=== PATIENT | female | born 1990 | race African-American/Black ===

== ENCOUNTER 2017-12-27 17:31 | Emergency (ER) | payer OTHER ==
[~2017-12-27] VITALS: Ht 165.1 cm; Wt 94.1 kg
[~2017-12-27 17:31] MED LIST: ALBU8.5H8 IH
[2017-12-27 18:10] LABS: BASOPHILS % (AUTO) 0.4 % (0.0-2.0); EOSINOPHILS % (AUTO) 1.7 % (1.0-6.0); HEMATOCRIT 31.4 % (36-46); HEMOGLOBIN 10.7 g/dL (12.0-16.0); LYMPHOCYTES # (AUTO) 1.9 K/uL (1.0-4.8); LYMPHOCYTES % (AUTO) 18.1 % (22.0-44.0); MEAN CORPUSCULAR HEMOGLOBIN 32.3 pg (26.0-34.0); MEAN CORPUSCULAR HGB CONC 34.1 G/dL (31.0-37.0); MEAN CORPUSCULAR VOLUME 95 fL (80-100); MONOCYTES # (AUTO) 0.9 K/uL (0.1-1.0); MONOCYTES % (AUTO) 8.4 % (2.0-9.0); NEUTROPHILS # (AUTO) 7.4 K/uL (1.8-7.7); NEUTROPHILS % (AUTO) 71.4 % (40.0-70.0); PLATELET COUNT (AUTO) 244 K/uL (150-450); RED BLOOD CELL COUNT(AUTO) 3.32 MIL/uL (4.00-5.20); RED CELL DISTRIBUTION WIDTH 11.9 % (11.5-14.5)
[2017-12-27 18:16] LABS: ANION GAP 8 mmol/L (8-16); CALCIUM, TOTAL 9.2 mg/dL (8.8-10.5); CARBON DIOXIDE 25 mmol/L (22-29); CHLORIDE 100 mmol/L (98-107); CREATININE 0.59 mg/dL (0.60-1.30); GLOMERULAR FILTR. RATE CALC > 60 mL/min (>60); GLUCOSE,RANDOM 91 mg/dL (70-110); POTASSIUM 3.4 mmol/L (3.5-5.1); SODIUM SERUM 133 mmol/L (136-145); UREA NITROGEN, BLOOD 4 mg/dL (7-18)
[2017-12-27 18:44] LABS: ALANINE AMINOTRANSFERASE 18 U/L (12-78); ALBUMIN 3.1 g/dL (3.4-5.0); ALKALINE PHOSPHATASE 52 U/L (46-116); ASPARTATE AMINOTRANSFERASE 15 U/L (15-37); HCG,QUANTITATIVE 128023 mIU/mL (0-6)
[2017-12-27 18:54] LABS: BILIRUBIN,TOTAL 0.1 mg/dL (0.1-1.0)
[2017-12-27] MEDS ORDERED: ALBUTEROL SULFATE HFA 90 MCG/PUFF 8 GM INHALER IH ONE (19:45)
[2017-12-27 20:53] VITALS: BP 111/63
[2017-12-27] MEDS ORDERED: POTASSIUM CHLORIDE 20 MEQ ER TABLET PO ONE (21:00)
== END 2017-12-27 20:55 | disposition home or self-care (01) ==
LOC: EMS 17:33
DX: O99.511 Diseases of the respiratory system complicating pregnancy, first trimester (principal); J45.909 Unspecified asthma, uncomplicated; O99.89 Other specified diseases and conditions complicating pregnancy, childbirth and the puerperium; E87.6 Hypokalemia; R10.2 Pelvic and perineal pain; Z87.891 Personal history of nicotine dependence; Z91.018 Allergy to other foods; Z79.899 Other long term (current) drug therapy; Z3A.11 11 weeks gestation of pregnancy
CPT/HCPCS: 76801; 76817; 86901; J3535

== ENCOUNTER 2018-04-15 13:40 | Observation (INO) | payer OTHER ==
[~2018-04-15] VITALS: Ht 165.1 cm; Wt 98.6 kg
[2018-04-15] MEDS ORDERED: PREN-154 PO (15:00)
[2018-04-15 16:20] VITALS: BP 133/60
[2018-04-15] MEDS ORDERED: ACETAMINOPHEN 500 MG TABLET PO ONE (17:45)
[2018-04-15 20:20] VITALS: BP 126/72
== END 2018-04-15 20:00 | disposition home or self-care (01) ==
LOC: EMS 13:41 → 4S 15:07 → INTOOBSV 15:07
PROVIDERS: ADMIT Obstetrics & Gynecology; ATTEND Obstetrics & Gynecology
DX: O9A.212 Injury, poisoning and certain other consequences of external causes complicating pregnancy, second trimester (principal); O26.892 Other specified pregnancy related conditions, second trimester; R10.9 Unspecified abdominal pain; O99.512 Diseases of the respiratory system complicating pregnancy, second trimester; J45.909 Unspecified asthma, uncomplicated; Z3A.27 27 weeks gestation of pregnancy; S69.91XA Unspecified injury of right wrist, hand and finger(s), initial encounter; X58.XXXA Exposure to other specified factors, initial encounter; Y93.89 Activity, other specified; Y92.89 Other specified places as the place of occurrence of the external cause; Y99.8 Other external cause status
CPT/HCPCS: 29125; 73130; 99284; G0378

== ENCOUNTER 2020-11-03 18:39 | Emergency (ER) | payer OTHER ==
[~2020-11-03] VITALS: Ht 165.1 cm; Wt 104.5 kg
[~2020-11-03 18:39] MED LIST changes: +PREN-154 PO
[2020-11-03 19:18] LABS: COVID AG,FIA SOURCE NASOPHARYNGEAL
[2020-11-03 19:51] VITALS: BP 154/97
== END 2020-11-03 22:33 | disposition home or self-care (01) ==
LOC: EMS 18:40
DX: Z20.822 Contact with and (suspected) exposure to COVID-19 (principal); J45.909 Unspecified asthma, uncomplicated; Z87.891 Personal history of nicotine dependence; Z91.018 Allergy to other foods
CPT/HCPCS: 99283

== ENCOUNTER 2020-11-09 16:03 | Emergency (ER) | payer OTHER ==
[~2020-11-09] VITALS: Ht 160 cm; Wt 113.6 kg
[2020-11-09] MEDS ORDERED: FLUT44HFA IH (16:15)
[2020-11-09 16:29] VITALS: BP 152/112
[2020-11-09 17:00] LABS: COVID AG,FIA SOURCE NASAL SWAB
== END 2020-11-09 17:44 | disposition home or self-care (01) ==
LOC: EMS 16:06
DX: R50.9 Fever, unspecified (principal); J45.909 Unspecified asthma, uncomplicated; Z20.822 Contact with and (suspected) exposure to COVID-19; Z87.891 Personal history of nicotine dependence; Z91.018 Allergy to other foods
CPT/HCPCS: 87426; 99283; U0003

== ENCOUNTER 2021-03-28 08:19 | Emergency (ER) | payer OTHER ==
[~2021-03-28] VITALS: Ht 165.1 cm; Wt 105.0 kg
[~2021-03-28 08:19] MED LIST changes: +FLUT44H IH; -PREN-154 PO
[2021-03-28 08:38] VITALS: BP 149/95
== END 2021-03-28 09:09 | disposition home or self-care (01) ==
LOC: EMS 08:24
DX: H20.00 Unspecified acute and subacute iridocyclitis (principal); J45.909 Unspecified asthma, uncomplicated; Z91.018 Allergy to other foods; Z79.899 Other long term (current) drug therapy
CPT/HCPCS: 99281; Z7502